=== PATIENT | male | born 1970 | race Caucasian/White ===

== ENCOUNTER 2016-03-26 13:07 | Emergency (ER) | payer MEDICAID, OTHER ==
[~2016-03-26] VITALS: Wt 79.5 kg
[2016-03-26] MEDS ORDERED: ACETAMINOPHEN 500 MG TAB PO STA (14:32)
[2016-03-26] MEDS ORDERED: PROM5SYR2 PO (14:46)
[2016-03-26] MEDS ORDERED: AZIT250T94 PO (14:46)
--- NOTE | 2016-03-26 14:49 | ERD ---
ER Documentation Chief Complaint Date/Time DATE: 03/26/16 TIME: 14:48 Chief Complaint cough, chills HPI Complains of 3 days of fever cough yellow phlegm. Abdominal pain with coughing. Nausea resolved. Is allergic to penicillin no other complaints. ROS All systems reviewed and are negative except as per history of present illness. Medications Home Meds Active Scripts Azithromycin* (Zithromax*) 250 Mg Tablet, 250 MG PO .ZPACK DIRECTED, #6 TAB TAKE 500 MG (2 TABS) THE FIRST DAY THEN 250 MG (1 TAB) DAYS 2-5 Prov:LYLY LOTT DO 03/26/16 Promethazine HCl/Codeine (Prometh-Codein 6.25-10 mg/5 ml) 5 Ml Syrup, 5 ML PO Q8 , #6 OZ Prov:LYLY LOTT DO 03/26/16 PMhx/Soc Medical and Surgical Hx: pt denies Medical Hx, pt denies Surgical Hx Hx Alcohol Use: No Hx Substance Use: No Physical Exam Vitals Vital Signs Date Time Temp Pulse Resp B/P Pulse Ox O2 Delivery O2 Flow Rate FiO2 03/26/16 13:15 101.3 110 20 134/87 97 Physical Exam Const: [Alert oriented 4, well-nourished well-developed nontoxic- appearing no apparent distress, interacts appropriately] Head: [Normocephalic/atraumatic, no scalp lesions] Eyes: [Normal Conjunctiva, PERRLA, EOMI no conjunctival injection no conjunctival discharge] ENT: [Normal External Ears, Nose and Mouth, no tonsillar exudates no tonsillar erythema no tonsillar edema oropharynx no erythema. bilateral ear canals are patent, bilateral tympanic membranes nonerythematous.] Neck: [Full range of motion. No meningismus. No cervical lymphadenopathy] Resp: [Clear to auscultation bilaterally, no wheezes rhonchi or rales, breathing normally, no tachypnea no nasal flaring no grunting no accessory muscle use no retractions] Cardio: [Regular rate and rhythm, no murmurs] Abd: [Soft, non tender, non distended. Normal bowel sounds, no rebound rigidity or guarding. Normoactive bowel sounds no flank tenderness, negative McBurney's negative Slaughter sign.] Skin: [No petechiae or rashes, no hives no urticaria no abscess no laceration no new warmth] Back: [No midline or flank tenderness, full range of motion without pain ] Ext: [No cyanosis, clubbing or edema] Neuro: M/S: Alert and oriented 4. Face: EOMI, face and pharynx with normal sensation and function Motor: Normal strength throughout, muscle strength is 5 out of 5 bilateral upper extremity and bilateral lower extremity Sensation: Normal sensation throughout Speech: Normal Cerebel: Normal coordination Normal gait DTR: 2+ and symmetric upper/lower extremities Psych: [Normal Mood and Affect, no suicidal ideation or homicide ideation] Results 24 hrs Current Medications Medications (Trade) Dose Ordered Sig/Teresita Route PRN Reason Start Time Stop Time Status Last Admin Dose Admin Ibuprofen (Motrin) 800 mg ONCE ONCE PO 03/26/16 15:00 03/26/16 15:01 03/26/16 14:40 Acetaminophen (Tylenol Tab) 1,000 mg ONCE STAT PO 03/26/16 14:32 03/26/16 14:34 DC 03/26/16 14:40 Procedures/MDM He has a cough and fever for 3 days this is likely bronchitis. Differential includes viral bronchitis or acute URI or pneumonia or pneumonitis. I will give him azithromycin which will cover pneumonia as well as bronchitis. His lung sounds are normal his pulse ox is normal he appears well he stable for discharge and outpatient follow-up. I doubt ascites or SBP. I think his abdominal pain is abdominal strain from coughing so much. Follow-up with PCP and ED precautions discussed. Departure Diagnosis: Primary Impression: Acute bronchitis Bronchitis organism: other organism Qualified Code: J20.8 - Acute bronchitis due to other specified organisms Condition: Stable Patient Instructions: What Is Bronchitis? LYLY LOTT DO Mar 26, 2016 14:49
[2016-03-26] MEDS ORDERED: IBUPROFEN 800 MG TAB PO ONE (15:00)
== END 2016-03-26 15:47 | disposition home or self-care (01) ==
LOC: FTE 13:07
DX: J20.8 Acute bronchitis due to other specified organisms (principal)
CPT/HCPCS: Z7610 ×2; 99284

== ENCOUNTER 2018-03-26 09:45 | Emergency (ER) | payer MEDICAID ==
[~2018-03-26] VITALS: Ht 172.7 cm; Wt 84.2 kg
[~2018-03-26 09:45] MED LIST: AZIT250T PO; PROM5SYR2 PO
[2018-03-26 09:50] VITALS: BP 144/92; PULSE 118; RESP 18; Ht 172.7 cm; Wt 84.2 kg
[2018-03-26] MEDS ORDERED: ACETAMINOPHEN 500 MG TAB PO STA (10:25)
[2018-03-26] MEDS ORDERED: IBUPROFEN 800 MG TAB PO ONE (10:30)
[2018-03-26] MEDS ORDERED: PROM6.2515 PO (11:06)
[2018-03-26] MEDS ORDERED: AZIT250T PO (11:06)
[2018-03-26] MEDS ORDERED: BENZ-6 PO (11:06)
--- NOTE | 2018-03-26 11:24 | ERD ---
ER Documentation Chief Complaint Chief Complaint FEVER, COUGH AND CONGESTION, CHEST WALL PAIN HPI 47-year-old male presenting with fever and cough with congestion times 2 days. Patient has had diffuse body aches. Has a runny nose. Mild sore throat. Describes it as a dry cough. Denies medical problems. Allergic to penicillin. Surgical history denies. Social history denies ROS All systems reviewed and are negative except as per history of present illness. Medications Home Meds Active Scripts Promethazine Hcl* (Promethazine Hcl* Syrup) 6.25 Mg/5 Ml Syrup, 6.25 MG PO Q6H PRN for COUGH, #100 ML Prov:KEVIN VALERA PA-C 03/26/18 Benzonatate* (Tessalon Perle*) 100 Mg Capsule, 100 MG PO Q8H PRN for COUGH, #100 CAP Prov:KEVIN VALERA PA-C 03/26/18 Azithromycin* (Zithromax*) 250 Mg Tablet, 250 MG PO .ZPACK DIRECTED, #6 TAB TAKE 500 MG (2 TABS) THE FIRST DAY THEN 250 MG (1 TAB) DAYS 2-5 Prov:KEVIN VALERA PA-C 03/26/18 Azithromycin* (Zithromax*) 250 Mg Tablet, 250 MG PO .ZPACK DIRECTED, #6 TAB TAKE 500 MG (2 TABS) THE FIRST DAY THEN 250 MG (1 TAB) DAYS 2-5 Prov:LYLY LOTT DO 03/26/16 Promethazine HCl/Codeine (Prometh-Codein 6.25-10 mg/5 ml) 5 Ml Syrup, 5 ML PO Q8, #6 OZ Prov:LYLY LOTT 03/26/16 PMhx/Soc Medical and Surgical Hx: pt denies Medical Hx, pt denies Surgical Hx History of Surgery: No Anesthesia Reaction: No Hx Neurological Disorder: No Hx Respiratory Disorders: No Hx Cardiac Disorders: No Hx Psychiatric Problems: No Hx Miscellaneous Medical Probl: No Hx Alcohol Use: No Hx Substance Use: No Hx Tobacco Use: No Smoking Status: Never smoker FmHx Family History: No diabetes, No coronary disease, No other Physical Exam Vitals Vital Signs Date Temp Pulse Resp B/P (MAP) Pulse Ox O2 O2 Flow FiO2 Time Delivery Rate 03/26/18 100.3 10:35 03/26/18 100.3 10:35 03/26/18 100.3 118 18 144/92 97 09:50 (109) Physical Exam GENERAL: The patient is well-appearing, well-nourished, in no acute distress HEENT: Atraumatic. Conjunctivae are pink. Pupils equal, round, and reactive to light. There is no scleral icterus. Tympanic membranes clear bilaterally. Oropharynx clear. No nystagmus or photophobia. NECK: C-spine is soft and supple. There is no meningismus. There is no cervical lymphadenopathy. CHEST: Clear to auscultation bilaterally. There are no rales, wheezes or rh onchi. HEART: Regular rate and rhythm. No murmurs, clicks, rubs or gallops. No S3 or S4. Results 24 hrs Current Medications Medications Dose Sig/Teresita Start Time Status Last (Trade) Ordered Route PRN Stop Time Admin Dose Reason Admin 1,000 mg ONCE STAT 03/26/18 DC 03/26/18 Acetaminophen PO 10:25 10:35 (Tylenol 03/26/18 10:26 Tab) Ibuprofen 800 mg ONCE ONCE 03/26/18 DC 03/26/18 (Motrin) PO 10:30 10:35 03/26/18 10:31 Procedures/MDM DIAGNOSTIC IMAGING REPORT Patient: WILFRED GANT : 1970 Age: 47 Sex: M MR #: [id number] DOS: 03/26/18 1025 Ordering MD: PUJA VALERA PA-C Location: [facility] Room/Bed: PROCEDURE: XR Chest AP portable CLINICAL INDICATION: Cough TECHNIQUE: An AP portable radiograph of the chest was submitted. COMPARISON: None. FINDINGS: Support Hardware: None Cardiovascular: The cardiovascular silhouette appears unremarkable. Lung [place]: Subsegmental atelectasis projects to the heart at the left lung base. The lung lagos are otherwise clear. Pleural Spaces: No pneumothorax or pleural effusion is identified. Osseous Structures: The osseous structures appear intact. Soft Tissues: The soft tissues appear unremarkable. IMPRESSION: 1. Subsegmental atelectasis projects to the heart at the left lung base. 2. Otherwise, unremarkable chest. MDM: 47-year-old male presenting with cough. I have low suspicion for respiratory distress or hypoxia. Patient be discharged with supportive medications. Patient is told symptoms change or worsen to return ER immediately. A low suspicion for meningitis or sepsis. I have low suspicion for pneumonia. I have low suspicion for bacterial HEENT infection. Patient is discharged stricter precautions and told to follow-up with primary care within 1-2 days for close evaluation. All questions answered at discharge Departure Diagnosis: Primary Impression: Upper respiratory infection Condition: Stable Patient Instructions: Cough, Chronic, Uncertain Cause, (Adult) Referrals: [facility], [facility] YOU HAVE RECEIVED A MEDICAL SCREENING EXAM AND THE RESULTS INDICATE THAT YOU DO NOT HAVE A CONDITION THAT REQUIRES URGENT TREATMENT IN THE EMERGENCY DEPARTMENT. FURTHER EVALUATION AND TREATMENT OF YOUR CONDITION CAN WAIT UNTIL YOU ARE SEEN IN YOUR DOCTORS OFFICE WITHIN THE NEXT 1-2 DAYS. IT IS YOUR RESPONSIBILITY TO MAKE AN APPOINTMENT FOR FOLOW-UP CARE. IF YOU HAVE A PRIMARY DOCTOR --you should call your primary doctor and schedule an appointment IF YOU DO NOT HAVE A PRIMARY DOCTOR YOU CAN CALL OUR PHYSICIAN REFERRAL HOTLINE AT IF YOU CAN NOT AFFORD TO SEE A PHYSICIAN YOU CAN CHOSE FROM THE FOLLOWING [facility] [address] [facility]. [facility] [address] [facility] [facility] [address] [facility] [facility] [address] [facility]. [facility] [address] [facility]. [facility]. [address] Additional Instructions: FOLLOW UP WITH YOUR PRIMARY CARE PHYSICIAN TOMORROW.Return to this facility if you are not improving as expected. KEVIN VALERA PA-C Mar 26, 2018 11:24
== END 2018-03-26 11:45 | disposition home or self-care (01) ==
LOC: FTE 09:45
DX: J06.9 Acute upper respiratory infection, unspecified (principal)
CPT/HCPCS: 71045; 87400; Z7610